=== PATIENT | female | born 1970 | race Caucasian/White ===

== ENCOUNTER 2018-07-23 10:33 | Outpatient (CLI) | payer BC | END 2018-07-23 10:34 | disposition home or self-care (01) | LOC: BICMAMMO 10:33 | PROVIDERS: ATTEND Obstetrics & Gynecology | DX: Z12.31 Encounter for screening mammogram for malignant neoplasm of breast (principal); Z80.3 Family history of malignant neoplasm of breast | CPT/HCPCS: 77063; 77067 ==

== ENCOUNTER 2019-05-07 17:06 | Emergency (ER) | payer BC ==
--- NOTE | 2019-05-07 17:54 | RAD ---
RIGHT FOURTH TOE THREE VIEWS: 05/07/19 HISTORY: Pain following an injury. FINDINGS: Probable tiny hairline fracture through the base of the distal phalanx of the fourth toe with minimal soft tissue swelling. IMPRESSION: Probable tiny hairline fracture through the base of the distal phalanx of the fourth toe. POS: [facility]
== END 2019-05-07 18:22 | disposition home or self-care (01) ==
LOC: SCSER 17:06
DX: S92.531A Displaced fracture of distal phalanx of right lesser toe(s), initial encounter for closed fracture (principal); D50.0 Iron deficiency anemia secondary to blood loss (chronic); Z79.899 Other long term (current) drug therapy; W18.09XA Striking against other object with subsequent fall, initial encounter